=== PATIENT | male | born 2000 | race Caucasian/White ===

== ENCOUNTER 2020-02-05 04:59 | Emergency (ER) | payer SELFPAY ==
[2020-02-05 05:06] VITALS: BP 142/118; PULSE 117; RESP 18; TEMP 37.1; O2SAT 97; BMI 19.5
--- NOTE | 2020-02-05 05:20 | XR_ITS ---
WS: [id number] Right hand, 3 views, 02/05/2020 2 day Clinical Data: hand injury Comparison: None. Findings: There are fractures of the base of the right fourth metacarpal and possibly the hamate. There is post erior dislocation of the right fifth metacarpal. Soft tissue swelling over the injury site is present . The phalanges appear to be normal. The first through third metacarpals are unremarkable. The carpal b ones except for the hamate are normal. XR/XR hand RT min 3V* [id number] Impression: 1. Fracture of the base of the right fourth metacarpal with posterior dislocati on of the base of the right fifth metacarpal. 2. Questionable fracture of the hamate.
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
[2020-02-05 05:23] VITALS: BP 147/101; PULSE 103; RESP 18; TEMP 36.7; O2SAT 97
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
[2020-02-05] MEDS: HYDROcodone-acetaminophen 7.5-325 mg Tablet 1 TAB PO (05:50)
--- NOTE | 2020-02-05 05:53 | PC.NURSE ---
Pt is unable to move R hand, pulse and sensation is present. Diminished motor. Pt finind relief with rolled washcloths under R hand
[2020-02-05 06:28] VITALS: BP 136/92; PULSE 116; RESP 18; TEMP 36.9; O2SAT 97
--- NOTE | 2020-02-05 06:43 | PC.NURSE ---
RN reviewed and agrees with assessment
--- NOTE | 2020-02-05 15:00 | DCPLANNER ---
integrated campaign manager was asked to schedule a follow up appointment for patient with ortho. integrated campaign manager called the ortho clinic, spoke with Pat, gave clinic patients information. integrated campaign manager was told that patients information would be printed and reviewed. Clinic will call catalytic case operator and patient with appointment information.
--- NOTE | 2020-02-10 14:07 | DCPLANNER ---
manager pharmacy called [facility], spoke with Pat to confirm if a follow up appointment had been scheduled for patient. manager pharmacy was told that the [facility] clinic tried calling the phone number [phone], and the lady that answered the phone did not know patient. The only other number in patients chart is the ER where it states a friend works but no name of the friend. Can not reach patient at this time to discuss follow up care.
== END 2020-02-05 06:28 | disposition home or self-care (01) ==
PROVIDERS: Emergency Provider Emergency Medicine
DX: S62.314A Displaced fracture of base of fourth metacarpal bone, right hand, initial encounter for closed fracture (principal); S62.316A Displaced fracture of base of fifth metacarpal bone, right hand, initial encounter for closed fracture; S09.90XA Unspecified injury of head, initial encounter; S00.10XA Contusion of unspecified eyelid and periocular area, initial encounter; F17.200 Nicotine dependence, unspecified, uncomplicated; Y04.2XXA Assault by strike against or bumped into by another person, initial encounter; W22.01XA Walked into wall, initial encounter
CPT/HCPCS: 12345; 29125; 73130; 99281; 99283